=== PATIENT | male | born 1950 | race Caucasian/White ===

== ENCOUNTER → 2020-12-02 | Outpatient (CLI) | payer MEDICARE, OTHER ==
--- NOTE | 2020-12-02 13:44 | CTL ---
EXAMINATION TYPE: CT Low Dose Lung DATE OF EXAM ORDERED: 12/02/2020 HISTORY: Long-term tobacco use. Lung cancer screening CT DLP: 162.[address] CTDI: 4.3 mGy Automated exposure control for dose reduction was used. SCREENING VISIT: Initial study COMPARISON: None TECHNIQUE: Low dose computed tomography scan was performed through the chest at 1 mm thick sections a nd reconstructed images in the coronal plane at [address] DIAGNOSTIC QUALITY: Limited, but interpretable FINDINGS: LUNG NODULES: Present, detailed below: Densely calcified 3.6 x 2.8 cm anterior right middle lobe nodule on axial image 183 favored benign. A dditional 5 mm calcified right middle lobe nodule or granuloma axial image 160 medially. There is 5 x 4 mm left upper lobe noncalcified nodule axial image 89. LUNGS: COPD: Severity: Mild Fibrosis: Severity: Mild anterior left midlung. Lymph nodes: No suspicious greater than 1 cm noncalcified. Some subcentimeter calcified right hilar l ymph nodes. Other findings: None. BILATERAL PLEURAL SPACE: Effusion: None Calcification: None Thickening: None Pneumothorax: None HEART: Heart Size: Normal Coronary calcification: Moderate three-vessel Pericardial effusion: None OTHER FINDINGS: Upper abdomen: None Bony thorax: Moderate to severe multilevel anterior and lateral spurring Supraclavicular region: None. Other: Calcification at level of the mitral valve. IMPRESSION: Evidence of old granulomatous disease. Single 5 mm noncalcified left upper lobe nodule. CT LUNG RAD AND CT CHEST RECOMMENDATION: Lung-Rad 2 Benign Appearance or Behavior: Continue annual sc reening with LDCT in 12 months. S Modifier (other clinically significant findings): None
== END | disposition home or self-care (01) ==
LOC: RADCTMAIN 12:03
PROVIDERS: ATTEND Family Medicine
DX: Z12.2 Encounter for screening for malignant neoplasm of respiratory organs (principal); R91.1 Solitary pulmonary nodule; D71 Functional disorders of polymorphonuclear neutrophils; Z87.891 Personal history of nicotine dependence
CPT/HCPCS: 71271

== ENCOUNTER → 2021-09-12 | Outpatient (CLI) | payer MEDICARE, OTHER ==
[2021-09-12 12:49] LABS: African American GFR (CKD) >90 (>60 ml/min/1.73 sqM); Blood Urea Nitrogen 15 mg/dL (9-20); Non-African American GFR(CKD) 85 (>60 ml/min/1.73 sqM)
--- NOTE | 2021-09-12 13:35 | CT ---
EXAMINATION TYPE: CT chest w con DATE OF EXAM: 09/12/2021 COMPARISON: 12/02/2020 HISTORY: 71-year-old male R91.1, Lung nodule TECHNIQUE: Contiguous axial scanning of the chest after the administration of 100 mL of Isovue 300. Coronal/sagittal reconstructions performed. CT DLP: 652.2mGycm. Automatic exposure control utilized for a dose reduction. FINDINGS: Heart normal size without pericardial effusion. Dense mitral annular calcifications are present. Ther e is three-vessel coronary artery calcification also present. This is a marker for coronary artery di sease. Ectatic aortic root at 3.8 cm. Ectatic ascending aorta at 3.8 cm. Severe narrowing proximal left subclavian artery at and just before the left vertebral artery takeoff , axial image 9. Ectasia upper descending thoracic aorta 3.1 cm. No thoracic lymphadenopathy by CT size criteria. Calcified right hilar lymph node compatible with jose david or granulomatous disease. Borderline enlarged caliber to the main right and left pulmonary arteries at 2.5 cm each, may reflect underlying pulmonary arterial hypertension. There is redemonstration of a 3.7 cm calcified right middle lobe mass. Adjacent 5 mm right middle lobe calcified granuloma. Stable 6 mm posterior right lower lobe pulmonary nodule, axial images 39. Stable 4 mm left upper lobe pulmonary nodule, axial image 20. Strandy atelectasis left lower lung. No consolidation or pleural effusion. Small calcified granuloma anterior spleen. Visualized upper abdomen otherwise shows mild to moderate stool burden. Bones: [facility] within the mid to lower thoracic spine. IMPRESSION: 1. Calcified 3.7 cm right middle lobe mass remains unchanged for 9 months. Findings may represent a l arge calcified granuloma. There is additional evidence of prior granulomatous disease. 2. Additional scattered 6 mm and smaller pulmonary nodules remain unchanged for 9 months suggesting a benign etiology. The patient may return to annual lung cancer screening CT. 3. Incidentally, note a severe focal left subclavian artery stenosis. Consider vascular surgery evalu ation. 4. CAD. Possible underlying pulmonary hypertension.
== END | disposition home or self-care (01) ==
LOC: RADCTMAIN 11:59
PROVIDERS: ATTEND Internal Medicine Critical Care Medicine
DX: R91.8 Other nonspecific abnormal finding of lung field (principal); I25.10 Atherosclerotic heart disease of native coronary artery without angina pectoris; I77.1 Stricture of artery
CPT/HCPCS: 82565; 84520; 71260; 36415; Q9967

== ENCOUNTER → 2023-07-04 | Outpatient (CLI) | payer MEDICARE, OTHER ==
--- NOTE | 2023-07-04 13:06 | XR ---
EXAMINATION TYPE: XR ankle complete LT DATE OF EXAM: 07/04/2023 COMPARISON: NONE HISTORY: pain FINDINGS: Three views of the ankle demonstrate narrowing of the subtalar joint greater posteriorly. There is so ft tissue and vascular calcifications with diffuse subcutaneous edema. Hypertrophic spurring along th e medial and lateral malleolus may be postarthritic or post remote trauma. Tiny calcaneal spurs. IMPRESSION: 1. No definite acute fracture or dislocation, if symptoms persist follow-up study in 7 to 10 days wou ld be suggested. 2. Diffuse soft tissue edema and arthropathy as discussed above.
== END | disposition home or self-care (01) ==
LOC: RADXRMAIN 12:32
PROVIDERS: ATTEND Family Medicine
DX: M25.572 Pain in left ankle and joints of left foot (principal); M25.472 Effusion, left ankle; R60.0 Localized edema

== ENCOUNTER → 2024-09-16 | Outpatient (CLI) | payer MEDICARE, OTHER ==
--- NOTE | 2024-09-16 14:50 | MR ---
EXAMINATION TYPE: MR brain wo con DATE OF EXAM: 09/16/2024 COMPARISON: NONE HISTORY: 74-year-old male R41.3, Amnesia TECHNIQUE: Multiplanar, multisequence images of the brain and brainstem were acquired without IV con trast. Diffusion weighted imaging is performed. FINDINGS: No evidence for acute infarction, hemorrhage, mass, mass effect, midline shift, herniation, effacemen t of basal cisterns, or extra-axial fluid collection. Moderate generalized supratentorial volume loss. There is mild ventriculomegaly, Gopal's ratio calcula britney at 0.32. Major intracranial flow voids are intact. Dominant left vertebral artery. There is a 5 mm nodular fracisco w void in the region of the anterior communicating artery, unclear if this represents partial volume averaging artifact or a saccular aneurysm. T2/FLAIR weighted sequences show mild to moderate patchy periventricular white matter changes and mil d scattered foci throughout the subcortical and deep white matter regions of both cerebral hemisphere s. Midline structures demonstrate normal morphology. The craniocervical junction is normal. Mild mucosal thickening ethmoid air cells and floors of the maxillary sinuses. Globes are intact. Tra ce fluid within the inferior left mastoid air cells. IMPRESSION: 1. Moderate cerebral atrophy. Ventriculomegaly likely ex vacuo enlargement from central cerebral atro phy. 2. Mild to moderate burden of chronic small vessel ischemic disease. No acute intracranial abnormalit y seen. 3. Either partial volume averaging versus a 5 mm saccular aneurysm in the region of the anterior comm uting artery. Consider follow-up evaluation with either MRA or [facility] [place] [facility] [place]. 4. Mild chronic ethmoid and maxillary sinus disease. Trace fluid inferior left mastoid air cells. Cor relate for any mastoid pain. [facility], , 09/16/2024 2:48 PM
== END | disposition home or self-care (01) ==
LOC: RADMRIMAIN 13:07
PROVIDERS: ATTEND Psychiatry & Neurology Neurology
CPT/HCPCS: 70551

== ENCOUNTER → 2024-10-23 | Outpatient (CLI) | payer MEDICARE, OTHER ==
--- NOTE | 2024-10-24 20:17 | MR ---
EXAMINATION TYPE: MR angio head wo con DATE OF EXAM: 10/23/2024 2:29 PM COMPARISON: Correlation brain 09/16/2024 CLINICAL INDICATION: Male, 74 years old with history of I67.1 CEREBRAL ANEURYSM, NONRUPTURED, abnorma l brain mri TECHNIQUE: High-resolution 3-D [id number] imaging of the [place] [facility] [place]. Rotational 3-D reconst ructions generated on a dedicated independent workstation.. FINDINGS: There is a dominant left vertebral artery. Preserved flow related enhancement of both vertebral and b asilar arteries as well as the remainder of the posterior circulation. There is a tiny 2 mm saccular aneurysm projecting laterally from the cavernous segment right ICA. Oth erwise, the internal carotid arteries and remainder of the anterior circulation are patent. No other aneurysmal changes seen with particular attention to the region of the anterior communicatin g artery. IMPRESSION: 1. 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 2. No other aneurysmal change is seen with particular attention to the ACOM region questioned on brai n MRI. Findings compatible with partial volume averaging artifact on that study. [facility], , 10/24/2024 8:15 PM
== END | disposition home or self-care (01) ==
LOC: RADMRIMAIN 13:19
PROVIDERS: ATTEND Psychiatry & Neurology Neurology
DX: I67.1 Cerebral aneurysm, nonruptured (principal)
CPT/HCPCS: 70544; 82607; 84207